=== PATIENT | male | born 1980 | race Caucasian/White ===

== ENCOUNTER 2017-03-17 06:16 | Emergency (ER) | payer MEDICAID, OTHER ==
[~2017-03-17] VITALS: Ht 177.8 cm; Wt 79.4 kg
--- NOTE | 2017-03-17 06:28 | NUR ---
DR. FAROOQ IN ROOM FOR EVAL.
[2017-03-17] MEDS ORDERED: VALACYCLOVIR HCL 500 MG TABLET PO ONE (06:30)
[2017-03-17 06:40] VITALS: BP 137/92
--- NOTE | 2017-03-17 06:40 | NUR ---
Patient discharged to home in stable conditon. Written and verbal after care instructions given. Patient verbalizes understanding of instructions. PATIENT LEFT WITH STABLE GAIT.
[2017-03-17] MEDS ORDERED: VALACYCLOVIR HCL 500 MG TABLET ONE (06:47)
== END 2017-03-17 06:40 | disposition home or self-care (01) ==
LOC: ER 06:20
DX: B00.1 Herpesviral vesicular dermatitis (principal); F22 Delusional disorders; Z59.0 Homelessness
CPT/HCPCS: A4663

== ENCOUNTER 2017-08-08 03:00 | Emergency (ER) | payer MEDICAID, OTHER ==
[~2017-08-08] VITALS: Ht 177.8 cm; Wt 77.1 kg
[2017-08-08] MEDS ORDERED: SULFAMETH/TRIMETH 800/160 MG TABLET PO ONE (03:15)
[2017-08-08] MEDS ORDERED: HYDROCODONE/APAP 10-325 MG TABLET PO ONE (03:15)
--- NOTE | 2017-08-08 03:20 | NUR ---
Patient discharged to home in stable conditon. Written and verbal after care instructions given. Patient verbalizes understanding of instructions.pt not driving
[2017-08-08] MEDS ORDERED: SULFAMETH/TRIMETH 800/160 MG TABLET ONE (03:35)
[2017-08-08] MEDS ORDERED: HYDROCODONE/APAP 10-325 MG TABLET ONE (03:35)
== END 2017-08-08 03:24 | disposition home or self-care (01) ==
LOC: ER 03:05
DX: L08.9 Local infection of the skin and subcutaneous tissue, unspecified (principal); B19.20 Unspecified viral hepatitis C without hepatic coma
CPT/HCPCS: A4663

== ENCOUNTER 2018-08-31 08:42 | Emergency (ER) | payer MEDICAID, OTHER ==
[~2018-08-31] VITALS: Ht 177.8 cm; Wt 77.1 kg
--- NOTE | 2018-08-31 08:59 | NUR ---
PT A/OX4, PRESENTS TO THE ER C/O GENERALIZED WEAKNESS IN THE LAST COUPLE OF DAYS AND "INFECTION". UPON ASSESSMENT, PT HAS FULL RANGE OF MOTION IN ALL EXTREMITIES, NO ARM/LEG DRIFT. PT PRESENTS W/ RASH ON FACE, NECK, CHEST, BACK, AND REPORTS SAME RASH ON GROIN AREA. VSS. PT DENIES PAIN, C/P, SOB, N/V/D, DIZZINESS, HEADACHE.
--- NOTE | 2018-08-31 09:03 | NUR ---
OREN HERNANDES AT BEDSIDE FOR MSE.
--- NOTE | 2018-08-31 09:11 | NUR ---
Patient discharged to home in stable conditon. Written and verbal after care instructions given. Patient verbalizes understanding of instructions. ALL BELONGINGS W/ PT. PT SELF-AMBULATED W/O DIFFICULTY.
[2018-08-31 09:12] VITALS: BP 118/74
== END 2018-08-31 09:12 | disposition home or self-care (01) ==
LOC: ER 08:42
DX: B95.8 Unspecified staphylococcus as the cause of diseases classified elsewhere (principal); Z59.0 Homelessness
CPT/HCPCS: A4663

== ENCOUNTER 2020-04-09 22:33 | Emergency (ER) | payer OTHER ==
[~2020-04-09] VITALS: Ht 180.3 cm; Wt 77.1 kg
--- NOTE | 2020-04-09 23:06 | NUR ---
Dr Berkowitz into eval patient.
[2020-04-09] MEDS ORDERED: CEFTRIAXONE 1 G VIAL IM ONE (23:15)
[2020-04-09] MEDS ORDERED: SULFAMETH/TRIMETH 800/160 MG TABLET PO ONE ×2 (23:15→23:30)
[2020-04-09] MEDS ORDERED: LIDOCAINE HCL 1% 20 ML VIAL ONE (23:21)
[2020-04-09] MEDS ORDERED: CEFTRIAXONE 1 G VIAL ONE (23:21)
[2020-04-09 23:36] LABS: *BILIRUBIN,URIN NEGATIVE (NEGATIVE); *BLOOD, URINE NEGATIVE (NEGATIVE); *CLARITY,URINE CLEAR (CLEAR); *COLOR,URINE YELLOW (YELLOW); *KETONES,URINE NEGATIVE (NEGATIVE); LEUKOCYTE ESTERASE ,URINE NEGATIVE (NEGATIVE); NITRITE, URINE NEGATIVE (NEGATIVE); UGLUCOSE NEGATIVE (NEGATIVE)
[2020-04-09 23:37] LABS: BASOPHILS # (AUTO) 0.1 K/uL (0.0-8.0); BASOPHILS % (AUTO) 0.8 % (0.0-2.0); EOSINOPHILS # (AUTO) 0.2 K/uL (0.0-0.7); HEMOGLOBIN 14.1 g/dL (12.5-16.3); LYMPHOCYTES # (AUTO) 1.5 K/uL (20.0-40.0); LYMPHOCYTES % (AUTO) 25.8 % (20.5-51.5); MEAN CORPUSCULAR HEMOGLOBIN 30.3 uug (23.8-33.4); MEAN CORPUSCULAR HGB CONC 34 g/dL (32.5-36.3); MEAN CORPUSCULAR VOLUME 87.9 fL (73.0-96.2); MONOCYTES # (AUTO) 0.5 K/uL (2.0-10.0); MONOCYTES % (AUTO) 8.4 % (0.0-11.0); NEUTROPHILS # (AUTO) 3.7 K/uL (1.8-8.9); PLATELET COUNT (AUTO) 344 K/uL (152-348); RED BLOOD CELL COUNT(AUTO) 4.66 MIL/uL (4.06-5.63); WHITE BLOOD COUNT (AUTO) 5.9 K/uL (3.6-10.2)
[2020-04-09 23:43] LABS: BILIRUBIN,TOTAL 0.3 mg/dL (0.2-1.0); POTASSIUM 3.7 mmol/L (3.5-5.1); TOTAL PROTEIN, SERUM 8.9 g/dL (6.4-8.2)
[2020-04-10 00:15] LABS: BACTERIA,URINE NONE SEEN /HPF (NONE SEEN); MUCUS,URINE FEW /LPF (0-FEW); RBC,URINE 0-3 /HPF (0-3); SQUAMOUS EPITHELIAL CELL,UR FEW /HPF (NONE SEEN); URINE AMORPHOUS PHOSPHATES FEW /HPF; WBC,URINE 0-3 /HPF (0-3)
--- NOTE | 2020-04-10 00:46 | NUR ---
Patient discharged to home in stable condition. Written and verbal after care instructions given. Patient verbalizes understanding of instructions. Stressed follow up or return to ER for worsening s/s.
--- NOTE | 2020-04-10 00:48 | NUR ---
Patient given written and verbal discharge instructions. Patient verbalizes understanding of instructions. Patient is ambulatory with steady gait. Refuses offer of correction placement. Patient given list of available shelters in surrounding area.
[2020-04-10 00:50] VITALS: BP 130/80
== END 2020-04-10 00:50 | disposition home or self-care (01) ==
LOC: ER 22:34
DX: L03.116 Cellulitis of left lower limb (principal); R60.0 Localized edema; Z59.0 Homelessness; Z86.19 Personal history of other infectious and parasitic diseases; R03.0 Elevated blood-pressure reading, without diagnosis of hypertension
CPT/HCPCS: 36415; 80053; 81001; 85025; 93970; 96372; 99284; J0696; J3490; A4663

== ENCOUNTER 2020-04-10 13:52 | Emergency (ER) | payer OTHER ==
[~2020-04-10] VITALS: Ht 180.3 cm; Wt 77.1 kg
--- NOTE | 2020-04-10 14:33 | NUR ---
PT WAS EVALUATED BY DR VALENCIA. PT WAS D/C'd TO HOME. D/C INSTRUCTIONS GIVEN TO THE PT BY DR VALENCIA.
[2020-04-10 14:39] VITALS: BP 136/81
== END 2020-04-10 14:40 | disposition home or self-care (01) ==
LOC: ER 13:52
DX: Z51.89 Encounter for other specified aftercare (principal); L03.116 Cellulitis of left lower limb; Z59.0 Homelessness; Z86.19 Personal history of other infectious and parasitic diseases
CPT/HCPCS: A4663

== ENCOUNTER 2020-04-21 19:24 | Emergency (ER) | payer OTHER ==
[~2020-04-21] VITALS: Ht 177.8 cm; Wt 77.1 kg
[2020-04-21] MEDS ORDERED: [UNRECOGNIZED DRUG - REMARK] (19:33)
[2020-04-21] MEDS ORDERED: [UNRECOGNIZED DRUG - REMARK] (19:33)
--- NOTE | 2020-04-21 19:45 | NUR ---
Dr. Berger at bedside from [facility].
--- NOTE | 2020-04-21 19:55 | NUR ---
Patient discharged to home in stable condition. Written and verbal after care instructions given. Patient verbalizes understanding of instructions. Stressed follow up or return to ER for worsening s/s. Ambulated out of ER in steady gait.
[2020-04-21 19:56] VITALS: BP 110/80
== END 2020-04-21 19:55 | disposition home or self-care (01) ==
LOC: ER 19:26
DX: Z76.0 Encounter for issue of repeat prescription (principal); Z59.0 Homelessness; L03.116 Cellulitis of left lower limb; L03.115 Cellulitis of right lower limb; Z86.19 Personal history of other infectious and parasitic diseases
CPT/HCPCS: A4663

== ENCOUNTER 2020-07-03 04:49 | Emergency (ER) | payer OTHER ==
[~2020-07-03] VITALS: Ht 177.8 cm; Wt 79.4 kg
[~2020-07-03 04:49] MED LIST: [UNRECOGNIZED DRUG - REMARK]; [UNRECOGNIZED DRUG - REMARK]
--- NOTE | 2020-07-03 05:15 | NUR ---
ERMD at bedside for MSE
[2020-07-03] MEDS ORDERED: VANCOMYCIN IV 1,000 MG in IV DEXTROSE 5% 250 ML IV ONE (05:30)
[2020-07-03] MEDS ORDERED: VANCOMYCIN IV 200 ML ONE (05:37)
[2020-07-03 05:40] LABS: BASOPHILS % (AUTO) 0.2 % (0.0-2.0); HEMATOCRIT 34.8 % (36.7-47.1); HEMOGLOBIN 12.2 g/dL (12.5-16.3); LYMPHOCYTES # (AUTO) 1.5 K/uL (20.0-40.0); LYMPHOCYTES % (AUTO) 18.3 % (20.5-51.5); MEAN CORPUSCULAR HEMOGLOBIN 30.5 uug (23.8-33.4); MEAN CORPUSCULAR HGB CONC 35 g/dL (32.5-36.3); MEAN CORPUSCULAR VOLUME 86.8 fL (73.0-96.2); MONOCYTES # (AUTO) 0.9 K/uL (2.0-10.0); MONOCYTES % (AUTO) 11.3 % (0.0-11.0); NEUTROPHILS # (AUTO) 5.9 K/uL (1.8-8.9); NEUTROPHILS % (AUTO) 70.2 % (38.5-71.5); PLATELET COUNT (AUTO) 222 K/uL (152-348); RED BLOOD CELL COUNT(AUTO) 4.01 MIL/uL (4.06-5.63); WHITE BLOOD COUNT (AUTO) 8.4 K/uL (3.6-10.2)
--- NOTE | 2020-07-03 05:53 | NUR ---
XRAY at bedside for imaging
[2020-07-03 05:59] LABS: BILIRUBIN,DIRECT 0.1 mg/dL (0.0-0.2); BILIRUBIN,TOTAL 0.3 mg/dL (0.2-1.0); POTASSIUM 3.3 mmol/L (3.5-5.1); TOTAL PROTEIN, SERUM 7.7 g/dL (6.4-8.2)
--- NOTE | 2020-07-03 06:10 | NUR ---
According to ROSIO, Dr. Berkowitz. He spoke to case management social worker with patients insurance group and case management social worker accepts patient for inpatient admission. He also signed off to Dr. Villeda at [facility] who accepts the patient for transfer. Patient pending COVID results then will contact [facility] for BLS transport to facility.
[2020-07-03] MEDS ORDERED: HYDROMORPHONE 1 MG/1 ML DISP.SYRIN IV ONE (06:15)
[2020-07-03] MEDS ORDERED: ONDANSETRON 4 MG/2 ML VIAL IV ONE (06:15)
[2020-07-03] MEDS ORDERED: HYDROMORPHONE 1 MG/1 ML DISP.SYRIN ONE (06:19)
[2020-07-03] MEDS ORDERED: ONDANSETRON 4 MG/2 ML VIAL ONE (06:19)
--- NOTE | 2020-07-03 07:17 | NUR ---
Handoff report given to JONNY Brand for continuity of care.
--- NOTE | 2020-07-03 09:00 | NUR ---
Pt's COVID results faxed to pt's HMO as requested by ER admitting. Pt is awake, alert and oriented. Pt is eating breakfast. NAD noted at this time. Pending disposition after response from pt's HMO.
--- NOTE | 2020-07-03 09:45 | NUR ---
Received telephone call from [employer] from pt's [employer] who stated pt has been accepted at [facility], room 5543, for report, Dr. Villeda accepting.
--- NOTE | 2020-07-03 09:55 | NUR ---
Called [facility] for transport to [facility], eta 1330, trip #[id number].
--- NOTE | 2020-07-03 10:00 | NUR ---
Plan of care discussed with patient.
--- NOTE | 2020-07-03 10:14 | NUR ---
IV removed. Catheter intact and site benign. Pressure and 4x4 gauze applied to site. No bleeding noted.
--- NOTE | 2020-07-03 10:15 | NUR ---
Patient does not wish to proceed with medical care recommended by . Patient given information related to possible complications, up to and including , which could occur as a result of leaving the hospital at this time. Patient verbalizes understanding of risks involved due to leaving against medical advice. Patient has signed AMA form.
== END 2020-07-03 10:16 | disposition left against medical advice (07) ==
LOC: ER 04:51
DX: L03.113 Cellulitis of right upper limb (principal); S51.811A Laceration without foreign body of right forearm, initial encounter; X58.XXXA Exposure to other specified factors, initial encounter; Y92.89 Other specified places as the place of occurrence of the external cause; Z86.19 Personal history of other infectious and parasitic diseases; Z59.0 Homelessness; Z20.828 Contact with and (suspected) exposure to other viral communicable diseases
CPT/HCPCS: 36415; 73090; 80048; 80076; 85025; 85730; 87040 ×2; 87426; 96365; 96366; 96375; 99285; J1170; J2405; J3370

== ENCOUNTER 2021-10-16 17:04 | Emergency (ER) | payer OTHER ==
[~2021-10-16] VITALS: Ht 177.8 cm; Wt 79.4 kg
[2021-10-16] MEDS ORDERED: CEPH500C2 PO (17:28)
[2021-10-16] MEDS ORDERED: DOXY-326 PO (17:28)
[2021-10-16] MEDS ORDERED: CEphaleXIN 500 MG CAPSULE PO ONE (17:30)
[2021-10-16] MEDS ORDERED: DOXYCYCLINE HYCLATE 100 MG TABLET PO ONE (17:30)
--- NOTE | 2021-10-16 17:44 | NUR ---
PT WAS EVALUATED BY DR VILLARREAL. PT WAS D/C'd TO HOME. D/C INSTRUCTIONS GIVEN TO THE PT BY DR VILLARREAL.
[2021-10-16 17:45] VITALS: BP 142/75
[2021-10-16] MEDS ORDERED: CEphaleXIN 500 MG CAPSULE ONE (17:48)
[2021-10-16] MEDS ORDERED: DOXYCYCLINE HYCLATE 100 MG TABLET ONE (17:48)
== END 2021-10-16 17:46 | disposition home or self-care (01) ==
LOC: ER 17:04
DX: L03.116 Cellulitis of left lower limb (principal); L03.115 Cellulitis of right lower limb; Z59.02 Unsheltered homelessness; Z86.19 Personal history of other infectious and parasitic diseases
CPT/HCPCS: A4663

== ENCOUNTER 2022-08-09 23:50 | Emergency (ER) | payer OTHER ==
[~2022-08-09] VITALS: Ht 175.3 cm; Wt 83.9 kg
[~2022-08-09 23:50] MED LIST changes: +CEPH500C2 PO; +DOXY-326 PO; -[UNRECOGNIZED DRUG - REMARK]; -[UNRECOGNIZED DRUG - REMARK]
--- NOTE | 2022-08-10 00:27 | NUR ---
Patient sitting up at bedside awaiting MD exam, no s/s of any distress noted. BLE raegan with scabbed areas noted. States medication was left behind when he was removed from place he was staying.
[2022-08-10] MEDS ORDERED: ERYT250T65 PO (01:24)
[2022-08-10] MEDS ORDERED: SULF1TAB48 PO (01:24)
[2022-08-10] MEDS ORDERED: SULFAMETH/TRIMETH 800/160 MG TABLET ONE (01:25)
--- NOTE | 2022-08-10 01:27 | NUR ---
Medicated as per order.
[2022-08-10] MEDS ORDERED: SULFAMETH/TRIMETH 800/160 MG TABLET PO ONE (01:30)
--- NOTE | 2022-08-10 01:37 | NUR ---
ACI GIVEN STATES UNDERSTANDING AND REMAINS STABLE FOR DISCHARGE.
[2022-08-10 01:38] VITALS: BP 145/66
== END 2022-08-10 01:40 | disposition home or self-care (01) ==
LOC: ER 23:55
DX: L03.119 Cellulitis of unspecified part of limb (principal); Z86.19 Personal history of other infectious and parasitic diseases; Z59.01 Sheltered homelessness; L98.9 Disorder of the skin and subcutaneous tissue, unspecified
CPT/HCPCS: A4663